=== PATIENT | male | born 1960 | race Caucasian/White ===

== ENCOUNTER 2016-12-18 10:37 | Emergency (ER) | payer SELFPAY ==
[~2016-12-18] VITALS: Ht 175.3 cm; Wt 62.5 kg
[2016-12-18 10:40] VITALS: Ht 175.3 cm; Wt 62.5 kg
[2016-12-19] MEDS ORDERED: AZIT250T94 PO (10:28)
[2016-12-19] MEDS ORDERED: ALBU8.5H3 INH (10:28)
[2016-12-19] MEDS ORDERED: PRED20TA PO (10:28)
[2016-12-19] MEDS ORDERED: UDROBDM PO (10:29)
== END 2016-12-18 11:49 | disposition left against medical advice (07) ==
LOC: FTE 10:37
DX: Z53.21 Procedure and treatment not carried out due to patient leaving prior to being seen by health care provider (principal)

== ENCOUNTER 2016-12-19 08:51 | Emergency (ER) | payer MEDICAID ==
[~2016-12-19] VITALS: Ht 152.4 cm; Wt 83.0 kg
[2016-12-19 08:53] VITALS: Ht 152.4 cm; Wt 83.0 kg
[2016-12-19] MEDS ORDERED: predniSONE 20 MG TAB PO STA (09:15)
[2016-12-19] MEDS ORDERED: ALBUTEROL 0.5% (NEB) 2.5 MG/0.5 ML AMP INH STA (09:15)
[2016-12-19] MEDS ORDERED: IPRATROPIUM (NEB) 0.5 MG/2.5 ML AMP INH STA (09:15)
--- NOTE | 2016-12-19 09:32 | RADRPT ---
PROCEDURE: XR Chest. CLINICAL INDICATION: chest pain, asthma, cough TECHNIQUE: Single frontal view of the chest was obtained COMPARISON: None FINDINGS: The heart and mediastinum are within normal limits. The lungs are clear. There is no pleural effusion or pneumothorax. RPTAT: AA IMPRESSION: No acute disease. .Paxton Live MD, Date Time Electronically viewed and signed by .Paxton Live MD, on 12/19/2016 09:31 .S/
--- NOTE | 2016-12-19 09:39 | ERD ---
ER Documentation Chief Complaint Chief Complaint COUGH X "A FEW MONTH" HPI This a 56-year-old male who presents the emergency department today complaining of a cough for the past 6 weeks. States he has tried [id number] medications. States he smokes cigarettes. States he has had bronchitis in the past. Denies any fevers or chills. ROS All systems reviewed and are negative except as per history of present illness. Medications Home Meds Active Scripts Guaifenesin-Dextromethorphan* (Robitussin* DM) 100MG/10MG/5ML Syrup, 10 ML PO Q6H Y for COUGH for 5 Days, ML Prov:AKILA DURAN PA-C 12/19/16 Prednisone* (Prednisone*) 20 Mg Tab, 40 MG PO DAILY for 4 Days, TAB Prov:AKILA DURAN PA-C 12/19/16 Albuterol Sulfate* (Proair HFA*) 8.5 Gm Hfa.aer.ad, 2 PUFF INH Q4, #1 INHALER Prov:AKILA DURAN PA-C 12/19/16 Azithromycin* (Zithromax*) 250 Mg Tablet, 250 MG PO .ZPACK DIRECTED, #6 TAB TAKE 500 MG (2 TABS) THE FIRST DAY THEN 250 MG (1 TAB) DAYS 2-5 Prov:AKILA DRUAN PA-C 12/19/16 PMhx/Soc History of Surgery: Yes (toe amputation) Anesthesia Reaction: No Hx Neurological Disorder: No Hx Respiratory Disorders: Yes (bronchitis) Hx Cardiac Disorders: No Hx Psychiatric Problems: No Hx Miscellaneous Medical Probl: No Hx Alcohol Use: No Hx Substance Use: No Hx Tobacco Use: Yes Smoking Status: Current every day smoker Physical Exam Vitals Vital Signs Date Time Temp Pulse Resp B/P Pulse Ox O2 Delivery O2 Flow Rate FiO2 12/19/16 09:46 90 22 89 21 12/19/16 08:53 98.0 78 18 142/73 96 Physical Exam Const: talkative, NAD Head: Atraumatic Eyes: Normal Conjunctiva ENT: Normal External Ears, Nose and Mouth. Neck: Full range of motion..~ No meningismus. Resp: Breath sounds diffusely in all lung rubio. Cardio: Regular rate and rhythm, no murmurs Abd: Soft, non tender, non distended. Normal bowel sounds Skin: No petechiae or rashes Back: No midline or flank tenderness Ext: No cyanosis, or edema Neur: Awake and alert Psych: Normal Mood and Affect Results 24 hrs Current Medications Medications (Trade) Dose Ordered Sig/Angelita Route PRN Reason Start Time Stop Time Status Last Admin Dose Admin Albuterol (Proventil 0.5% (Neb)) 5 mg ONCE STAT INH 12/19/16 09:15 12/19/16 09:16 DC 12/19/16 09:15 Ipratropium [place] (Atrovent 0.02% (Neb)) 1 mg ONCE STAT INH 12/19/16 09:15 12/19/16 09:16 DC 12/19/16 09:15 Prednisone (Prednisone) 60 mg ONCE STAT PO 12/19/16 09:15 12/19/16 09:16 DC 12/19/16 09:37 DIAGNOSTIC IMAGING REPORT Patient: LYNETTE DHILLON : 1960 Age: 56 Sex: M MR #: [id number] DOS: 12/19/1615 Ordering MD: AKILA DURAN PA-C Location: [facility] Room/Bed: PROCEDURE: XR Chest. CLINICAL INDICATION: chest pain, asthma, cough TECHNIQUE: Single frontal view of the chest was obtained COMPARISON: None FINDINGS: The heart and mediastinum are within normal limits. The lungs are clear. There is no pleural effusion or pneumothorax. RPTAT: AA IMPRESSION: No acute disease. .Paxton Live MD, MD Date Time Electronically viewed and signed by .Paxton Live MD, MD on 12/19/2016 09: 31 .S/ CC: AKILA DURAN PA-C Procedures/MDM This is a 56-year-old male who presents to the emergency department today complaining of a cough for the past 6 weeks. On physical exam patient had coarse breath sounds diffusely in all lung rubio with some expiratory wheezing as well. This is the patient's first visit to the emergency department although he was seen here yesterday and left without being seen as the "wait was too long". Given patient's complaints I did obtain a chest x-ray as well as give the patient a 1 hour continuous breathing treatment addition to prednisone. Chest X-ray shows no acute disease. There is no pleural effusion or pneumothorax. Patient is afebrile and otherwise well-appearing. His oxygen saturation 96%. He is not tachycardic. Low suspicion for pneumonia, PE, abscess, pleural effusion, pneumothorax. At this time is consistent with cough. Patient a smoker and he was counseled for greater than 3 minutes on smoking cessation. Given the duration of patient' s symptoms I will give him a prescription for azithromycin for likely bronchitis as well as another short course of prednisone for home as well as an albuterol inhaler. At this time the patient is stable for discharge and outpatient management. Patient should follow up with their PCP in the next 1-2 days. They may return to the emergency department sooner for any persistent or worsening of symptoms. Patient understood and agreed with the plan. Departure Diagnosis: Primary Impression: Cough Condition: Fair AKILA DURAN PA-C Dec 19, 2016 09:39
[2016-12-19] MEDS ORDERED: ALBU8.5H3 INH (10:28)
[2016-12-19] MEDS ORDERED: AZIT250T94 PO (10:28)
[2016-12-19] MEDS ORDERED: PRED20TA PO (10:28)
[2016-12-19] MEDS ORDERED: UDROBDM PO (10:29)
== END 2016-12-19 10:38 | disposition home or self-care (01) ==
LOC: FTE 08:51
DX: R05 Cough (principal); F17.210 Nicotine dependence, cigarettes, uncomplicated
CPT/HCPCS: 71010; 94664; J7512; Z7502; Z7610